=== PATIENT | female | born 2000 | race Caucasian/White ===

== ENCOUNTER 2019-02-21 16:10 | Inpatient (IN) | payer OTHER ==
[~2019-02-21 16:10] MED LIST: ELECTROLYTE-148 SOLN 1,000 ML IV SCH
[2019-02-21] MEDS ORDERED: AMPICILLIN - 2 GM in SODIUM CHLORIDE 100 ML IVPB ONE (17:15)
[2019-02-21 18:56] LABS: EPI CELLS 5.3 /HPF (0-5/HPF); URINE APPEARANCE CLEAR; URINE BACTERIA 2866.5 /hpf (NEGATIVE); URINE BILIRUBIN NEGATIVE (NEGATIVE); URINE CASTS 6 /lpf (0-8); URINE COLOR YELLOW; URINE GLUCOSE (UA) NEGATIVE (NEGATIVE); URINE KETONE NEGATIVE (NEGATIVE); URINE LEUK ESTERASE 1+ (NEGATIVE); URINE NITRITE NEGATIVE (NEGATIVE); URINE PROTEIN NEGATIVE (NEGATIVE); URINE RBC 1 /hpf (0-4); URINE WBC 12 /hpf (0-5)
[2019-02-21 18:58] LABS: COCAINE, UR NEGATIVE ng/ml (CUTOFF=300); METHADONE, UR NEGATIVE ng/ml (CUTOFF=300); OPIATES, URI NEGATIVE ng/ml (CUTOFF=300); PHENCYCLIDINE,URINE NEGATIVE ng/ml (CUTOFF=25); URINE AMPHETAMINES NEGATIVE ng/ml (CUTOFF=500); URINE BARBITURATES NEGATIVE ng/ml (CUTOFF=200); URINE BENZODIAZEPINES NEGATIVE ng/ml (CUTOFF=200)
[2019-02-21 19:02] LABS: PLATELET COUNT 134 K/MM3 (134-434); RETICULOCYTES 1.31 % (0.5-1.5)
[2019-02-21 19:08] VITALS: BMI 27.4
[2019-02-21 19:15] LABS: INR 0.96 (0.83-1.09); PROTHROMBIN TIME (PATIENT) 11.3 SEC (9.7-13.0)
[2019-02-21 19:18] LABS: ACTIVATED PTT 31.9 SECONDS (25.2-36.5)
[2019-02-21] MEDS ORDERED: ELECTROLYTE-148 SOLN 1,000 ML IV SCH (19:30)
[2019-02-21] MEDS ORDERED: FENTANYL/BUPIVACAINE/NS/PF - PCEA - 50 ML DISP.SYRIN EP ONE (19:32)
--- NOTE | 2019-02-21 19:32 | HP ---
Past Medical History - Primary Care Physician PCP:: Reinier Garcia - Admission Chief Complaint: 40.4 weeks, , labor History of Present Illness: 19 yo f , care in [facility] , 40.4 weeks in labor, cx 2 cm 80 vx -2 mi, fh cat 1, contraction regular . no rom, no bleeding History Source: Patient Limitations to Obtaining History: No Limitations - Past Medical History ...: 6 ...Para: 0 ...Induced : 5 ...LMP: 05/15/18 ... Weeks Gestation by Dates: 40.2 ...EDC by Dates: 02/19/19 ...EDC by Sono: 02/17/19 - Past Surgical History Hx Myomectomy: No Hx Transabdominal Cerclage: No (5 induced ) - Smoking History Smoking history: Never smoked Have you smoked in the past 12 months: No - Alcohol/Substance Use Hx Alcohol Use: No - Social History Usual Living Arrangement: Yes: With Spouse History of Recent Travel: No Home Medications - Allergies Allergies/Adverse Reactions: Allergies Allergy/AdvReac Type Severity Reaction Status Date / Time No Known Allergies Allergy Verified 02/21/19 17:04 - Home Medications Home Medications: Ambulatory Orders Tablet 1 tablet PO DAILY 02/21/19 Review of Systems - Review of Systems Constitutional: reports: No Symptoms Eyes: reports: No Symptoms HENT: reports: No Symptoms Neck: reports: No Symptoms Cardiovascular: reports: No Symptoms Respiratory: reports: No Symptoms Gastrointestinal: reports: No Symptoms Genitourinary: reports: No Symptoms Breasts: reports: No Symptoms Reported Musculoskeletal: reports: No Symptoms Integumentary: reports: No Symptoms Neurological: reports: No Symptoms Endocrine: reports: No Symptoms Psychiatric: reports: No Symptoms Physical Exam - Maternity Vital Signs: Vital Signs Temperature 99.7 F H 02/21/19 18:00 Pulse Rate 76 02/21/19 19:00 Respiratory Rate 20 02/21/19 19:00 Blood Pressure 128/85 02/21/19 19:00 O2 Sat by Pulse Oximetry (%) Constitutional: Yes: Well Nourished, No Distress, Calm Eyes: Yes: WNL, Conjunctiva Clear, EOM Intact HENT: Yes: WNL, Atraumatic, Normocephalic Neck: Yes: WNL, Supple, Trachea Midline Cardiovascular: Yes: WNL, Regular Rate and Rhythm Breast(s): Yes: WNL - Abdominal Exam/OB Fundal Height: 40 Number of Fetuses: Single Presentation: Vertex Contractions: Yes Regularity: Regular Intensity: Mod/Strong Monitor Mode: External Heart Rate Location: [facility] Category: I Decelerations: None - Vaginal Exam/OB Vaginal Bleediing: No Speculum Exam: No Dilatation (cm): 2 cm Effacement (%): 80 Amniotic Membrane Status: Bulging Presentation: Vertex/Position Station: -2 - Physical Exam Musculoskeletal: Yes: WNL Extremities: Yes: WNL Edema: Yes Edema: LLE: Trace, RLE: Trace Deep Tendon Reflex Grade: Normal +2 ...Motor Strength: WNL Psychiatric: Yes: WNL - Labs Lab Results: CBC, BMP 02/21/19 18:45 Hemorrhage Risk Assessment - Risk Factors Medium Risk Factors: Yes: None High Risk Factors: Yes: None Risk Score: 1 Risk Level: Medium Risk Problem List - Problems (1) Post term over 40 weeks Code(s): O48.0 - POST-TERM (2) Labor established Code(s): [id number] - Assessment/Plan plan admit FHM pain management anticipate vaginal delivery
[2019-02-21 20:07] LABS: ANION GAP 9 MMOL/L (8-16); BLOOD UREA NITROGEN 9 mg/dL (7-18); CALCIUM 9.4 mg/dL (8.5-10.1); CHLORIDE 106 mmol/L (98-107); CO2 23 mmol/L (21-32); CREATININE 0.4 mg/dL (0.55-1.3); GLUCOSE,RANDOM 74 mg/dL (74-106); POTASSIUM 3.7 mmol/L (3.5-5.1); SODIUM 138 mmol/L (136-145)
[2019-02-21] MEDS ORDERED: NALOXONE HCL 0.4 MG/ML VIAL IVPUSH PRN (20:11)
[2019-02-21] MEDS ORDERED: FENTANYL/BUPIVACAINE/NS/PF - PCEA - 50 ML DISP.SYRIN EP SCH (20:15)
[2019-02-21 20:30] LABS: BASO % 0.1 % (0-2.0); EOS % 0.2 % (0-4.5); HEMATOCRIT 42.9 % (32.4-45.2); LYMPH % 6.1 % (8-40); MCH 28.2 pg (25.7-33.7); MCHC 32.7 g/dl (32.0-36.0); MEAN CELL VOLUME 86.4 fl (80-96); MEAN PLT VOLUME 11.4 fl (7.5-11.1); MONO % 6.2 % (3.8-10.2); NEUT % 87.4 % (42.8-82.8); RBC 4.96 M/mm3 (3.60-5.2); RDW 16.2 % (11.6-15.6); WHITE BLOOD COUNT 16.9 K/mm3 (4.0-10.0)
[2019-02-21 20:41] LABS: URIC ACID 4.6 mg/dL (2.6-7.2)
[2019-02-21] MEDS ORDERED: AMPICILLIN SODIUM 1 GM VIAL ONE (20:46)
[2019-02-21] MEDS ORDERED: OXYTOCIN 20 UNITS in 0.9% NS 20 UNIT/1,000 ML INFUS.BAG IV ONE ×2 (21:00→23:46)
[2019-02-21] MEDS ORDERED: LIDOCAINE HCL 1% PRESERVATIVE FREE - 30ML VIAL ONE ×2 (21:00→21:35)
[2019-02-21] MEDS ORDERED: AMPICILLIN - 1 GM in SODIUM CHLORIDE 100 ML IVPB SCH (21:00)
--- NOTE | 2019-02-21 21:10 | PN ---
Progress Note, Labor Vaginal Exam #1 Labor Exam Date: 02/21/19 Labor Exam Time: 21:05 Heart Rate (range): Bradykardia to about 80-90 for 6 minutes. recovere Dilatation: 8 Effacement (%): 100 Amniotic Membrane Status: Bulging Presentation: Vertex/Position Station: -2 (Petient refused ROM. She's waiting for her boyfriend. Advised to allow AROM and expedite the delivery. Continue LLP and O2.)
--- NOTE | 2019-02-21 21:42 | PN ---
Progress Note, Labor Vaginal Exam #2 Labor Exam Date: 02/21/19 Labor Exam Time: 21:25 Dilatation: 8 Amniotic Membrane Status: Bulging Presentation: Vertex/Position (AROM. Thick mec. Deep compression decels ( Cat 2).) Station: -2 (Early, deep decelerations (Cat 2).)
[2019-02-21 22:20] LABS: ARTERIAL BLD GAS O2 SATURATION 11.3 % (95-98); ARTERIAL BLOOD GAS PCO2 61.6 mmHg (35-45)
[2019-02-21 22:23] LABS: VENOUS PC02 60.6 mmHg (41-51); VENOUS PH 7.21 (7.31-7.41)
[2019-02-21 22:26] LABS: VENOUS PO2 10.1 mmHg (30-40)
[2019-02-21 22:29] LABS: ARTERIAL BLOOD GAS PO2 10.8 mmHg (80-105)
--- NOTE | 2019-02-21 22:43 | PN ---
Progress Note (short form) - Note Progress Note: 935 pm cx full 100 vx !+ station , fhr CAT 2 , regular contraction , anticipate vaginal delivery soon Problem List - Problems (1) Post term over 40 weeks Code(s): O48.0 - POST-TERM (2) Labor established Code(s): [id number] -
--- NOTE | 2019-02-21 22:46 | PN ---
Delivery - Delivery Vaginal Delivery: Spontaneous Type of Anesthesia: Epidural Episiotomy/Laceration: None (cx full , head on perinium, head delivered , naso pharynx suctioned , ant, post shoulder with no difficulty , live baby girl 9/9 , placenta complete, no laceration, ebl 300 cc ,no complication, cord blood gases obtained) Delivery, Single - [place] Feeding Plan Initial Plan: Elected not to breastfeed exclusively throughout hospitalization
[2019-02-21] MEDS ORDERED: WITCH HAZEL 50% (TUCKS) 40 PAD/JAR PAD TP PRN (22:47)
[2019-02-21] MEDS ORDERED: METHYLERGONOVINE MALEATE 0.2 MG/1 ML AMP IM PRN (22:47)
[2019-02-21] MEDS ORDERED: BISACODYL 10 MG SUPP.RECT RC PRN (22:47)
[2019-02-21] MEDS ORDERED: BENZOCAINE 20% 57 GM BOTTLE TP PRN (22:47)
[2019-02-21] MEDS ORDERED: BENZOCAINE 28 GM HEMORRHOIDAL OINTMENT TP PRN (22:47)
[2019-02-21] MEDS ORDERED: D5W-LR W/ 20 UNITS OXYTOCIN 20 UNIT/1,000 ML INFUS.BAG IV SCH (23:00)
[2019-02-22 03:39] LABS: GAMMA GLUTAMYL TRANSPEPTIDASE 12 U/L (5-85); SGOT/AST 17 U/L (15-37); SGPT/ALT 16 U/L (13-61)
[2019-02-22 07:33] LABS: BASO % 0.2 % (0-2.0); EOS % 0.6 % (0-4.5); HEMATOCRIT 35.4 % (32.4-45.2); HEMOGLOBIN 11.7 GM/dL (10.7-15.3); LYMPH % 11.9 % (8-40); MCH 28.4 pg (25.7-33.7); MCHC 33.2 g/dl (32.0-36.0); MEAN CELL VOLUME 85.5 fl (80-96); MEAN PLT VOLUME 10.7 fl (7.5-11.1); MONO % 8.5 % (3.8-10.2); NEUT % 78.8 % (42.8-82.8); PLATELET COUNT 111 K/MM3 (134-434); RBC 4.14 M/mm3 (3.60-5.2); RDW 16.6 % (11.6-15.6); WHITE BLOOD COUNT 13.5 K/mm3 (4.0-10.0)
--- NOTE | 2019-02-22 07:59 | PN ---
Progress Note (short form) - Note Progress Note: ppd 1 doing well, no c/o CBC, BMP 02/22/19 05:45 02/21/19 18:45 Last Vital Signs Temp Pulse Resp BP Pulse Ox 98.8 F 90 18 134/67 100 02/22/19 06:00 02/22/19 06:00 02/22/19 06:00 02/22/19 06:00 02/21/19 22:45 abdomen soft, no cva uterus firm, non tender lochia mild , no calf tenderness plan ambulate ,cbc Problem List - Problems (1) Post term over 40 weeks Code(s): O48.0 - POST-TERM (2) Labor established Code(s): [id number] -
[2019-02-22] MEDS: ACETAMINOPHEN 325 MG TABLET (FP) PO PRN (08:00)
[2019-02-22] MEDS: IBUPROFEN 600 MG TABLET (FP) PO PRN (08:00)
[2019-02-22] MEDS: FERROUS SO4 325 MG TABLET (FP) PO SCH ×2 (09:21→21:45)
[2019-02-22] MEDS: PRENATAL VITAMINS W/ FOLIC ACID TABLET (FP) PO SCH (09:21)
[2019-02-22] MEDS ORDERED: SENNOSIDES/DOCUSATE COMBO (SENNA PLUS) TABLET (UD) PO PRN (22:00)
[2019-02-23 08:06] VITALS: BP 135/88; PULSE 64; TEMP 98.1
[2019-02-23] MEDS: IBUPROFEN 600 MG TABLET (FP) PO PRN (09:02)
[2019-02-23] MEDS: ACETAMINOPHEN 325 MG TABLET (FP) PO PRN (09:02)
[2019-02-23] MEDS: FERROUS SO4 325 MG TABLET (FP) PO SCH (09:02)
[2019-02-23] MEDS: PRENATAL VITAMINS W/ FOLIC ACID TABLET (FP) PO SCH (09:02)
--- NOTE | 2019-02-23 20:30 | DS ---
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: Vital Signs Temperature 98.1 F 02/23/19 08:05 Pulse Rate 64 02/23/19 08:05 Respiratory Rate 20 02/23/19 08:05 Blood Pressure 135/88 02/23/19 08:05 O2 Sat by Pulse Oximetry (%) 100 02/21/19 22:45 Constitutional: Yes: Well Nourished, No Distress, Calm Eyes: Yes: WNL, Conjunctiva Clear, EOM Intact HENT: Yes: WNL, Atraumatic, Normocephalic Neck: Yes: WNL, Supple, Trachea Midline Cardiovascular: Yes: WNL, Regular Rate and Rhythm Respiratory: Yes: WNL, Regular, CTA Bilaterally Gastrointestinal: Yes: WNL ...Rectal Exam: Yes: WNL Renal/: Yes: WNL Breast(s): Yes: WNL Musculoskeletal: Yes: WNL Extremities: Yes: WNL Integumentary: Yes: WNL Neurological: Yes: WNL, Alert, Oriented ...Motor Strength: WNL Psychiatric: Yes: WNL, Alert, Oriented Labs: CBC, BMP 02/22/19 05:45 02/21/19 18:45 Delivery - Delivery Vaginal Delivery: No Problems (no complication), Spontaneous Type of Anesthesia: Epidural Episiotomy/Laceration: None EBL (cc): 300 Delivery, Single - Stages of Labor Date 1st Stage Initiatied: 02/21/19 Time 1st Stage Initiated: 14:00 Date 2nd Stage Initiated: 02/21/19 Time 2nd Stage Initiated: 21:35 Date of Delivery: 02/21/19 Time of Delivery: 21:46 Time Placenta Delivered: 21:50 Placenta: Yes: Spontaneous - 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 call [facility] for appointment. [phone] Disposition: HOME - Home Medications Comprehensive Discharge Medication List: Ambulatory Orders Tablet 1 tablet PO DAILY 02/21/19
--- NOTE | 2019-02-26 14:08 | PATH ---
Surgical Pathology Report Patient Name: JOSE HERNANDEZ [facility]. Rec. 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 Specimen(s) Received PLACENTA Clinical History at 40.2 weeks Vaginal delivery and meconium stained fluid Final Diagnosis PLACENTA, VAGINAL DELIVERY: 374 G THIRD TRIMESTER PLACENTA WITH TRIVASCULAR UMBILICAL CORD AND PLACENTAL MEMBRANES WITH MECONIUM LADEN MACROPHAGES. Electronically Signed Eusebia Abraham M.D. Gross Description The specimen is received fresh labeled placenta and is a 374 gram, 16.0 x 16.0 x 2.2 cm. placenta with attached membranes and umbilical cord. The attached membranes are richardson, translucent with focal opacities and insert marginally. The umbilical cord measures 5 cm. in length and averages 1.1 cm. in diameter. The cord inserts centrally. No true knots or strictures are identified. Cut surface of the umbilical cord reveals 3 vessels. The surface is franklin green, meconium stained with minimal fibrin deposition and appropriate caliber vessels. The maternal surface is red-brown and intact. Sectioning reveals red-brown, spongy parenchyma. No lesions are identified. Support Service Tech sections are submitted in three cassettes as follows: 1- membrane rolls and umbilical cord; 2-3- full thickness sections of placenta. /02/25/2019 saudi02/25/2019
== END 2019-02-23 13:25 | disposition home or self-care (01) | DRG 560 ==
LOC: JLDR 16:10 → J3W 02-22 00:10
PROVIDERS: ADMIT Obstetrics & Gynecology; ATTEND Obstetrics & Gynecology
PROC: 10E0XZZ Delivery of Products of Conception, External Approach (ICD-10-PCS; principal; 2019-02-21)
DX: O48.0 Post-term pregnancy (principal); Z3A.40 40 weeks gestation of pregnancy; Z37.0 Single live birth
CPT/HCPCS: 36415; 36600; 59409; 80048; 80307; 81003; 82803; 82977; 83010; 84450; 84460; 84550; 85025; 85044; 85610; 85730; 86593; 86850; 86900; 86901; 88307-TC